=== PATIENT | male | born 2000 | race Caucasian/White ===

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

== ENCOUNTER 2022-08-14 20:10 | Emergency (ER) | payer OTHER ==
[2022-08-14 20:32] VITALS: BP 113/66; PULSE 100; RESP 20; TEMP 98.2
[2022-08-14 22:03] LABS: THROAT:GRP A STREP NOT DETECTED (NOTDETECTED)
== END 2022-08-14 22:58 | disposition home or self-care (01) ==
LOC: JER 20:10 → JERFT 20:10
DX: J06.9 Acute upper respiratory infection, unspecified (principal); Z20.822 Contact with and (suspected) exposure to COVID-19
CPT/HCPCS: 0241U-QW; 71046-TC-FY; 87651; 99284-25